=== PATIENT | male | born 1965 ===

== ENCOUNTER 2019-01-10 06:28 | Inpatient (IN) ==
[2019-01-10] MEDS ORDERED: SODIUM CHLORIDE 0.9% 1,000 ML IV STA (07:12)
[2019-01-10 07:20] LABS: Basophils # 0.1 10*3/uL (0.0-0.2); Basophils % 0.5 % (0.0-0.8); Eosinophils % 0.3 % (0.00-10.9); Hematocrit 39.1 VOL% (42.0-52.0); Hemoglobin 13.1 GM/DL (14.0-18.0); Immature Granulocytes % 0.6 %; Immature Granulocytes Absolute 0.07 #; Lymphocytes # 1.4 10*3/uL (1.4-4.0); Lymphocytes % 11.3 % (21.2-54.2); Mean Corpuscular HGB Conc 33.5 GM/DL (32-36); Mean Corpuscular Volume 85.6 FL (87-102); Mean Platelet Volume 11.1 FL (9.6-12.0); Monocytes % 7.7 % (1.7-12.7); Neutrophils % 79.6 % (38.7-73.9); Platelet Count 208 T/CUMM (130-400); Red Blood Count 4.57 MC/CUMM (3.8-5.5); Red Cell Distribution Width 13.2 % (9.3-17.3); White Blood Count 11.9 T/CUMM (4-12)
[2019-01-10 07:31] LABS: Osmolality,Calculated 276.1 MOS/KG (273-304)
[2019-01-10] MEDS ORDERED: ceFAZolin 2,000 MG in PREMIX 1 EACH IV ONE (07:50)
[2019-01-10] MEDS ORDERED: ceFAZolin 1,000 MG VIAL ONE (08:35)
[2019-01-10] MEDS ORDERED: ACETAMINOPHEN 325 MG TABLET PO PRN (08:47)
[2019-01-10] MEDS ORDERED: DOCUSATE SODIUM 100 MG CAPSULE PO PRN (08:47)
[2019-01-10] MEDS ORDERED: ONDANSETRON 4 MG/2 ML VIAL IV PRN (08:47)
[2019-01-10] MEDS ORDERED: GLUCAGON 1 MG VIAL IM PRN (09:05)
[2019-01-10] MEDS ORDERED: DEXTROSE 50% 25 GM/50 ML VIAL IV PRN (09:05)
[2019-01-10] MEDS ORDERED: BUPIVACAINE 0.25% /EPI 10 ML VIAL ONE (09:48)
[2019-01-10] MEDS ORDERED: LIDOCAINE MPF 1% /EPI 30 ML VIAL ONE (09:48)
[2019-01-10] MEDS ORDERED: PROPOFOL 200 MG/20 ML VIAL IV ONE (10:23)
[2019-01-10] MEDS ORDERED: LIDOCAINE 100 MG/5 ML SYRINGE ONE (10:23)
[2019-01-10] MEDS ORDERED: fentaNYL 100 MCG/2 ML VIAL ONE (10:24)
[2019-01-10] MEDS ORDERED: KETAMINE 500 MG/10 ML VIAL ONE (10:24)
[2019-01-10] MEDS ORDERED: ONDANSETRON 4 MG/2 ML VIAL ONE (10:24)
[2019-01-10] MEDS ORDERED: MIDAZOLAM 2 MG/2 ML VIAL ONE (10:24)
[2019-01-10] MEDS ORDERED: GLYCOPYRROLATE 0.4 MG/2 ML VIAL ONE (10:24)
[2019-01-10] MEDS: INSULIN LISPRO 100 UNIT/ML SUBCUT SCH ×3 (12:52→21:13)
[2019-01-10] MEDS: PIPERACILLIN/TAZOBACTAM 3,375 MG in SODIUM CHLORIDE 0.9% 100 ML IV SCH ×2 (12:52→21:09)
[2019-01-10] MEDS: POTASSIUM CHLORIDE RIDER 10 MEQ in PREMIX 1 EACH IV SCH ×4 (12:53→18:58)
[2019-01-10] MEDS: PANTOPRAZOLE 40 MG TABLET PO SCH (13:04)
[2019-01-10] MEDS: POTASSIUM CHLORIDE RIDER 20 MEQ in PREMIX 1 EACH IV SCH (13:37)
[2019-01-10] MEDS: HYDROmorphone 2 MG/1 ML VIAL IV PRN (15:19)
[2019-01-10] MEDS: IBUPROFEN 800 MG TABLET PO PRN (17:48)
[2019-01-10] MEDS: VANCOMYCIN INJ 2,000 MG in SODIUM CHLORIDE 0.9% 500 ML IV SCH (20:37)
[2019-01-11] MEDS: PIPERACILLIN/TAZOBACTAM 3,375 MG in SODIUM CHLORIDE 0.9% 100 ML IV SCH ×3 (03:37→23:33)
[2019-01-11 05:09] LABS: Basophils # 0.1 10*3/uL (0.0-0.2); Basophils % 0.5 % (0.0-0.8); Eosinophils # 0.1 10*3/uL (0.0-0.87); Eosinophils % 1.3 % (0.00-10.9); Hematocrit 37.2 VOL% (42.0-52.0); Hemoglobin 12.4 GM/DL (14.0-18.0); Immature Granulocytes % 0.5 %; Immature Granulocytes Absolute 0.05 #; Lymphocytes # 0.9 10*3/uL (1.4-4.0); Lymphocytes % 8.8 % (21.2-54.2); Mean Corpuscular HGB Conc 33.3 GM/DL (32-36); Mean Corpuscular Volume 85.7 FL (87-102); Mean Platelet Volume 10.3 FL (9.6-12.0); Monocytes % 7.2 % (1.7-12.7); Neutrophils % 81.7 % (38.7-73.9); Platelet Count 213 T/CUMM (130-400); Red Blood Count 4.34 MC/CUMM (3.8-5.5); White Blood Count 10.1 T/CUMM (4-12)
[2019-01-11 05:20] LABS: Calcium 7.9 MG/DL (8.5-10.1); Osmolality,Calculated 278.1 MOS/KG (273-304)
[2019-01-11] MEDS ORDERED: POTASSIUM CHLORIDE RIDER 10 MEQ in PREMIX 1 EACH IV PRN (07:43)
[2019-01-11] MEDS: PANTOPRAZOLE 40 MG TABLET PO SCH (09:09)
[2019-01-11] MEDS: ASPIRIN EC 81 MG TABLET PO SCH (09:09)
[2019-01-11] MEDS: SIMVASTATIN 20 MG TABLET PO SCH (09:09)
[2019-01-11] MEDS: POTASSIUM CHLORIDE 20 MEQ TABLET PO PRN ×5 (09:10→22:45)
[2019-01-11] MEDS: INSULIN LISPRO 100 UNIT/ML SUBCUT SCH ×4 (09:10→21:38)
[2019-01-11] MEDS: VANCOMYCIN INJ 2,000 MG in SODIUM CHLORIDE 0.9% 500 ML IV SCH ×2 (09:11→19:42)
[2019-01-11] MEDS: SODIUM HYPOCHLORITE 0.25% IRRIG 473 ML BOTTLE TOP SCH (11:30)
[2019-01-11] MEDS: CHLORHEXIDINE 4% SOLN 118 ML BOTTLE TOP SCH (11:30)
[2019-01-11] MEDS: amLODIPine 10 MG TABLET PO SCH (11:40)
[2019-01-11] MEDS: HYDROmorphone 2 MG/1 ML VIAL IV PRN ×2 (11:41→19:48)
[2019-01-12] MEDS: POTASSIUM CHLORIDE 20 MEQ TABLET PO PRN ×3 (01:55→06:02)
[2019-01-12] MEDS: HYDROmorphone 2 MG/1 ML VIAL IV PRN ×3 (02:00→21:56)
[2019-01-12 04:56] LABS: Basophils # 0.1 10*3/uL (0.0-0.2); Basophils % 0.6 % (0.0-0.8); Eosinophils # 0.2 10*3/uL (0.0-0.87); Eosinophils % 2.6 % (0.00-10.9); Hematocrit 34.1 VOL% (42.0-52.0); Hemoglobin 11.4 GM/DL (14.0-18.0); Immature Granulocytes % 0.3 %; Immature Granulocytes Absolute 0.02 #; Lymphocytes # 1.1 10*3/uL (1.4-4.0); Lymphocytes % 14.5 % (21.2-54.2); Mean Corpuscular HGB Conc 33.4 GM/DL (32-36); Mean Corpuscular Volume 84.8 FL (87-102); Mean Platelet Volume 10.9 FL (9.6-12.0); Monocytes % 8.2 % (1.7-12.7); Neutrophils % 73.8 % (38.7-73.9); Platelet Count 232 T/CUMM (130-400); Red Blood Count 4.02 MC/CUMM (3.8-5.5); White Blood Count 7.7 T/CUMM (4-12)
[2019-01-12 05:16] LABS: Calcium 7.9 MG/DL (8.5-10.1); Osmolality,Calculated 276.1 MOS/KG (273-304)
[2019-01-12] MEDS: PIPERACILLIN/TAZOBACTAM 3,375 MG in SODIUM CHLORIDE 0.9% 100 ML IV SCH ×2 (06:06→15:15)
[2019-01-12] MEDS: INSULIN LISPRO 100 UNIT/ML SUBCUT SCH ×4 (08:09→21:14)
[2019-01-12] MEDS ORDERED: SODIUM HYPOCHLORITE 0.25% IRRIG 473 ML BOTTLE TOP SCH (09:00)
[2019-01-12] MEDS ORDERED: CHLORHEXIDINE 4% SOLN 118 ML BOTTLE TOP SCH (09:00)
[2019-01-12] MEDS: amLODIPine 10 MG TABLET PO SCH (09:21)
[2019-01-12] MEDS: PANTOPRAZOLE 40 MG TABLET PO SCH (09:21)
[2019-01-12] MEDS: ASPIRIN EC 81 MG TABLET PO SCH (09:22)
[2019-01-12] MEDS: VANCOMYCIN INJ 2,000 MG in SODIUM CHLORIDE 0.9% 500 ML IV SCH ×2 (09:22→21:17)
[2019-01-12] MEDS: SIMVASTATIN 20 MG TABLET PO SCH (09:23)
[2019-01-12] MEDS: CHLORHEXIDINE 4% SOLN 118 ML BOTTLE TOP SCH (09:29)
[2019-01-12] MEDS: SODIUM HYPOCHLORITE 0.25% IRRIG 473 ML BOTTLE TOP SCH (09:29)
[2019-01-12] MEDS: POTASSIUM CHLORIDE 20 MEQ TABLET PO SCH (21:14)
[2019-01-13] MEDS: PIPERACILLIN/TAZOBACTAM 3,375 MG in SODIUM CHLORIDE 0.9% 100 ML IV SCH ×3 (01:40→17:38)
[2019-01-13 04:36] LABS: Basophils % 0.6 % (0.0-0.8); Eosinophils # 0.3 10*3/uL (0.0-0.87); Eosinophils % 4.2 % (0.00-10.9); Hematocrit 35.2 VOL% (42.0-52.0); Hemoglobin 11.4 GM/DL (14.0-18.0); Immature Granulocytes % 0.5 %; Immature Granulocytes Absolute 0.03 #; Lymphocytes # 1.2 10*3/uL (1.4-4.0); Mean Corpuscular HGB Conc 32.4 GM/DL (32-36); Mean Platelet Volume 10.5 FL (9.6-12.0); Monocytes % 9.2 % (1.7-12.7); Neutrophils % 67.5 % (38.7-73.9); Platelet Count 268 T/CUMM (130-400); Red Blood Count 4.14 MC/CUMM (3.8-5.5); White Blood Count 6.4 T/CUMM (4-12)
[2019-01-13 04:57] LABS: Calcium 8.1 MG/DL (8.5-10.1); Osmolality,Calculated 286.5 MOS/KG (273-304)
[2019-01-13] MEDS: VANCOMYCIN INJ 1,250 MG in SODIUM CHLORIDE 0.9% 250 ML IV SCH ×3 (05:02→21:24)
[2019-01-13] MEDS: INSULIN LISPRO 100 UNIT/ML SUBCUT SCH ×4 (08:04→21:22)
[2019-01-13] MEDS: IBUPROFEN 800 MG TABLET PO PRN ×2 (08:07→23:20)
[2019-01-13] MEDS: POTASSIUM CHLORIDE 20 MEQ TABLET PO SCH ×2 (09:04→21:22)
[2019-01-13] MEDS: ASPIRIN EC 81 MG TABLET PO SCH (09:04)
[2019-01-13] MEDS: SIMVASTATIN 20 MG TABLET PO SCH (09:04)
[2019-01-13] MEDS: PANTOPRAZOLE 40 MG TABLET PO SCH (09:04)
[2019-01-13] MEDS: CHLORHEXIDINE 4% SOLN 118 ML BOTTLE TOP SCH (09:05)
[2019-01-13] MEDS: amLODIPine 10 MG TABLET PO SCH (09:05)
[2019-01-13] MEDS: SODIUM HYPOCHLORITE 0.25% IRRIG 473 ML BOTTLE TOP SCH (09:05)
[2019-01-13] MEDS: ZINC OXIDE PASTE 113 GM TUBE TOP SCH ×2 (13:54→21:31)
[2019-01-13 16:14] LABS: Apearance,Urine Cloudy (Clear); Bilirubin,Urine Negative (Negative); Blood, Urine Negative (Negative); Glucose,Urine (UA) 500 mg/dL (Negative); Ketones,Urine 25 mg/dL (Negative); Nitrite,Urine Negative (Negative); Protein,Urine Negative; Urine Color Yellow (Yellow); Urine Specific Gravity 1.005 (1.001-1.035)
[2019-01-13 16:15] LABS: RBC,Urine Occasional /HPF (0-4); Squamous Epithelial Cell,Urine Rare /HPF (0-10); Urine Urobilinogen 0.2 EU/DL (0.2-1.0); WBC,Urine Occasional /HPF (0-6)
[2019-01-13] MEDS ORDERED: INSULIN GLARGINE 100 UNIT/ML SUBCUT SCH (21:00)
[2019-01-14] MEDS: PIPERACILLIN/TAZOBACTAM 3,375 MG in SODIUM CHLORIDE 0.9% 100 ML IV SCH ×3 (01:45→18:27)
[2019-01-14 05:18] LABS: Basophils # 0.1 10*3/uL (0.0-0.2); Basophils % 0.9 % (0.0-0.8); Eosinophils # 0.4 10*3/uL (0.0-0.87); Eosinophils % 6.1 % (0.00-10.9); Hematocrit 34.6 VOL% (42.0-52.0); Hemoglobin 11.1 GM/DL (14.0-18.0); Immature Granulocytes % 0.5 %; Immature Granulocytes Absolute 0.03 #; Lymphocytes # 1.4 10*3/uL (1.4-4.0); Lymphocytes % 21.8 % (21.2-54.2); Mean Corpuscular HGB Conc 32.1 GM/DL (32-36); Mean Corpuscular Volume 87.2 FL (87-102); Mean Platelet Volume 9.9 FL (9.6-12.0); Monocytes % 10.2 % (1.7-12.7); Neutrophils % 60.5 % (38.7-73.9); Platelet Count 286 T/CUMM (130-400); Red Blood Count 3.97 MC/CUMM (3.8-5.5); Red Cell Distribution Width 13.2 % (9.3-17.3); White Blood Count 6.4 T/CUMM (4-12)
[2019-01-14 05:43] LABS: Eosinophils 3 % (0-10); Lymphocytes 23 % (20-55); Nucleated Red Blood Cells 1 (0-5); Ovalocytes Slight; Platelet Estimate Adequate; Segmented Neutrophils 63 % (50-85); Total Cells Counted 100
[2019-01-14] MEDS: IBUPROFEN 800 MG TABLET PO PRN ×2 (05:45→21:16)
[2019-01-14] MEDS: VANCOMYCIN INJ 1,250 MG in SODIUM CHLORIDE 0.9% 250 ML IV SCH ×3 (06:15→22:55)
[2019-01-14] MEDS ORDERED: INSULIN GLARGINE 100 UNIT/ML SUBCUT SCH (07:44)
[2019-01-14] MEDS: INSULIN LISPRO 100 UNIT/ML SUBCUT SCH ×4 (08:54→21:20)
[2019-01-14] MEDS: POTASSIUM CHLORIDE 20 MEQ TABLET PO SCH ×2 (08:55→21:20)
[2019-01-14] MEDS: ASPIRIN EC 81 MG TABLET PO SCH (08:55)
[2019-01-14] MEDS: PANTOPRAZOLE 40 MG TABLET PO SCH (08:55)
[2019-01-14] MEDS: SIMVASTATIN 20 MG TABLET PO SCH ×2 (08:55→08:57)
[2019-01-14] MEDS: amLODIPine 10 MG TABLET PO SCH (08:55)
[2019-01-14] MEDS: ENOXAPARIN 40 MG/0.4 ML SYRINGE SUBCUT SCH (08:55)
[2019-01-14] MEDS: ZINC OXIDE PASTE 113 GM TUBE TOP SCH ×2 (09:25→21:21)
[2019-01-14] MEDS: SODIUM HYPOCHLORITE 0.25% IRRIG 473 ML BOTTLE TOP SCH (09:25)
[2019-01-14] MEDS: CHLORHEXIDINE 4% SOLN 118 ML BOTTLE TOP SCH (10:50)
[2019-01-14] MEDS ORDERED: TUBERCULIN SKIN TEST 0.1 ML SYRINGE INTRADERM ONE (12:12)
[2019-01-15] MEDS: PIPERACILLIN/TAZOBACTAM 3,375 MG in SODIUM CHLORIDE 0.9% 100 ML IV SCH (01:16)
[2019-01-15] MEDS: VANCOMYCIN INJ 1,250 MG in SODIUM CHLORIDE 0.9% 250 ML IV SCH (05:58)
[2019-01-15 06:04] LABS: Basophils # 0.1 10*3/uL (0.0-0.2); Basophils % 0.8 % (0.0-0.8); Eosinophils # 0.4 10*3/uL (0.0-0.87); Eosinophils % 6.7 % (0.00-10.9); Hematocrit 36.9 VOL% (42.0-52.0); Hemoglobin 12.1 GM/DL (14.0-18.0); Immature Granulocytes % 0.7 %; Immature Granulocytes Absolute 0.04 #; Lymphocytes # 1.6 10*3/uL (1.4-4.0); Lymphocytes % 25.9 % (21.2-54.2); Mean Corpuscular HGB Conc 32.8 GM/DL (32-36); Mean Corpuscular Volume 86.2 FL (87-102); Mean Platelet Volume 9.6 FL (9.6-12.0); Monocytes % 9.5 % (1.7-12.7); Neutrophils % 56.4 % (38.7-73.9); Platelet Count 337 T/CUMM (130-400); Red Blood Count 4.28 MC/CUMM (3.8-5.5); Red Cell Distribution Width 13.2 % (9.3-17.3)
[2019-01-15 06:26] LABS: Calcium 8.7 MG/DL (8.5-10.1); Osmolality,Calculated 279.7 MOS/KG (273-304)
[2019-01-15 06:34] LABS: Risk Ratio 4.62
[2019-01-15] MEDS ORDERED: INSULIN GLARGINE 100 UNIT/ML SUBCUT SCH ×2 (09:21→12:48)
[2019-01-15] MEDS: POTASSIUM CHLORIDE 20 MEQ TABLET PO SCH ×2 (09:21→21:10)
[2019-01-15] MEDS: SIMVASTATIN 20 MG TABLET PO SCH (09:21)
[2019-01-15] MEDS: ENOXAPARIN 40 MG/0.4 ML SYRINGE SUBCUT SCH (09:21)
[2019-01-15] MEDS: ASPIRIN EC 81 MG TABLET PO SCH (09:21)
[2019-01-15] MEDS: INSULIN LISPRO 100 UNIT/ML SUBCUT SCH ×4 (09:21→21:13)
[2019-01-15] MEDS: amLODIPine 10 MG TABLET PO SCH (09:21)
[2019-01-15] MEDS: SODIUM HYPOCHLORITE 0.25% IRRIG 473 ML BOTTLE TOP SCH (09:25)
[2019-01-15] MEDS: ZINC OXIDE PASTE 113 GM TUBE TOP SCH ×2 (09:26→21:09)
[2019-01-15] MEDS: CHLORHEXIDINE 4% SOLN 118 ML BOTTLE TOP SCH (09:26)
[2019-01-15] MEDS: PANTOPRAZOLE 40 MG TABLET PO SCH (09:30)
[2019-01-15] MEDS: CLINDAMYCIN 300 MG CAPSULE PO SCH ×2 (12:19→18:49)
[2019-01-15] MEDS: IBUPROFEN 800 MG TABLET PO PRN (21:09)
[2019-01-16] MEDS: CLINDAMYCIN 300 MG CAPSULE PO SCH ×3 (01:07→12:40)
[2019-01-16] MEDS: PANTOPRAZOLE 40 MG TABLET PO SCH (09:37)
[2019-01-16] MEDS: amLODIPine 10 MG TABLET PO SCH (09:37)
[2019-01-16] MEDS: SIMVASTATIN 20 MG TABLET PO SCH (09:37)
[2019-01-16] MEDS: POTASSIUM CHLORIDE 20 MEQ TABLET PO SCH (09:37)
[2019-01-16] MEDS: ASPIRIN EC 81 MG TABLET PO SCH (09:38)
[2019-01-16] MEDS: INSULIN LISPRO 100 UNIT/ML SUBCUT SCH ×2 (09:39→12:00)
[2019-01-16] MEDS: ENOXAPARIN 40 MG/0.4 ML SYRINGE SUBCUT SCH (09:40)
[2019-01-16] MEDS: ZINC OXIDE PASTE 113 GM TUBE TOP SCH (09:42)
[2019-01-16] MEDS: SODIUM HYPOCHLORITE 0.25% IRRIG 473 ML BOTTLE TOP SCH (09:42)
[2019-01-16] MEDS: CHLORHEXIDINE 4% SOLN 118 ML BOTTLE TOP SCH (09:42)
[2019-01-16 11:26] VITALS: BP 152/76
== END 2019-01-16 14:45 | disposition home health service (06) | DRG 987 ==
LOC: EDBD → EDUNIT# → N.ED 06:28 → N.EDINP 08:42 → SUATTDRO 08:42 → N.3E 09:20
PROVIDERS: ADMIT Internal Medicine; ATTEND Internal Medicine

== ENCOUNTER 2020-07-14 07:31 | Inpatient (IN) ==
[2020-07-14 08:12] LABS: Basophils # 0.1 10*3/uL (0.0-0.2); Basophils % 0.9 % (0.0-0.8); Eosinophils # 0.3 10*3/uL (0.0-0.87); Hematocrit 34.6 VOL% (42.0-52.0); Hemoglobin 10.4 GM/DL (14.0-18.0); Immature Granulocytes % 0.4 %; Immature Granulocytes Absolute 0.04 #; Lymphocytes # 2.3 10*3/uL (1.4-4.0); Lymphocytes % 25.2 % (21.2-54.2); Mean Corpuscular HGB Conc 30.1 GM/DL (32-36); Mean Corpuscular Volume 81.4 FL (87-102); Mean Platelet Volume 9.2 FL (9.6-12.0); Monocytes % 6.8 % (1.7-12.7); Neutrophils % 63.7 % (38.7-73.9); Platelet Count 318 T/CUMM (130-400); Red Blood Count 4.25 MC/CUMM (3.8-5.5); Red Cell Distribution Width 17.2 % (9.3-17.3); White Blood Count 9.1 T/CUMM (4-12)
[2020-07-14] MEDS ORDERED: ceFAZolin 1,000 MG in SYRINGE 1 EACH IV ONE (08:38)
[2020-07-14 08:47] LABS: Calcium 8.5 MG/DL (8.5-10.1); Osmolality,Calculated 284.7 MOS/KG (273-304); Potassium 3.4 MMOL/L (3.5-5.1)
[2020-07-14] MEDS ORDERED: MIDAZOLAM 2 MG/2 ML VIAL ONE (09:37)
[2020-07-14] MEDS ORDERED: fentaNYL 100 MCG/2 ML VIAL ONE (09:37)
[2020-07-14] MEDS: LACTATED RINGERS 1,000 ML IV SCH (09:45)
[2020-07-14] MEDS ORDERED: METHYLENE BLUE 10 ML VIAL IV ONE (10:06)
[2020-07-14] MEDS ORDERED: LIDOCAINE 2% 5 ML VIAL ONE (10:13)
[2020-07-14] MEDS ORDERED: SEVOFLURANE 1 UNIT/15 MINUTE INH ONE ×6 (10:13→11:18)
[2020-07-14] MEDS ORDERED: ONDANSETRON 4 MG/2 ML VIAL ONE ×2 (10:13→11:50)
[2020-07-14] MEDS ORDERED: propofoL 200 MG/20 ML VIAL IV ONE (10:13)
[2020-07-14] MEDS ORDERED: PHENYLEPHRINE 1 MG/10 ML SYRINGE IV ONE ×2 (10:13→10:49)
[2020-07-14] MEDS ORDERED: ROCURONIUM 50 MG/5 ML VIAL IV ONE (10:13)
[2020-07-14] MEDS ORDERED: BACITRACIN 50,000 UNIT VIAL ONE (10:36)
[2020-07-14] MEDS ORDERED: SUGAMMADEX 200 MG/2 ML VIAL IV ONE (10:39)
[2020-07-14] MEDS ORDERED: HYDROmorphone 2 MG/1 ML VIAL ONE (11:50)
[2020-07-14] MEDS: HYDROmorphone 2 MG/1 ML VIAL IV PRN ×2 (11:50→12:10)
[2020-07-14] MEDS ORDERED: ONDANSETRON 4 MG/2 ML VIAL IV PRN (12:03)
[2020-07-14] MEDS: ENOXAPARIN 30 MG/0.3 ML SYRINGE SUBCUT SCH (17:27)
[2020-07-15] MEDS ORDERED: GABAPENTIN 100 MG CAPSULE PO PRN (12:19)
[2020-07-15] MEDS ORDERED: GLUCAGON 1 MG VIAL IM PRN (12:19)
[2020-07-15] MEDS ORDERED: DEXTROSE 50% 25 GM/50 ML VIAL IV PRN (12:19)
[2020-07-15] MEDS: ENOXAPARIN 30 MG/0.3 ML SYRINGE SUBCUT SCH (15:49)
[2020-07-15] MEDS ORDERED: POTASSIUM CHLORIDE 20 MEQ TABLET PO ONE (15:58)
[2020-07-15] MEDS: INSULIN LISPRO 100 UNIT/ML SUBCUT SCH ×2 (16:54→21:43)
[2020-07-15] MEDS: FERROUS GLUCONATE 324 MG TABLET PO SCH (21:34)
[2020-07-16 06:02] LABS: Basophils # 0.1 10*3/uL (0.0-0.2); Basophils % 0.8 % (0.0-0.8); Eosinophils # 0.4 10*3/uL (0.0-0.87); Eosinophils % 5.2 % (0.00-10.9); Hematocrit 34.5 VOL% (42.0-52.0); Hemoglobin 10.6 GM/DL (14.0-18.0); Immature Granulocytes % 0.3 %; Immature Granulocytes Absolute 0.02 #; Lymphocytes % 26.9 % (21.2-54.2); Mean Corpuscular HGB Conc 30.7 GM/DL (32-36); Mean Corpuscular Volume 80.6 FL (87-102); Mean Platelet Volume 9.3 FL (9.6-12.0); Neutrophils % 59.8 % (38.7-73.9); Platelet Count 269 T/CUMM (130-400); Red Blood Count 4.28 MC/CUMM (3.8-5.5); Red Cell Distribution Width 17.1 % (9.3-17.3); White Blood Count 7.2 T/CUMM (4-12)
[2020-07-16 06:12] LABS: Calcium 8.5 MG/DL (8.5-10.1); Potassium 3.7 MMOL/L (3.5-5.1)
[2020-07-16] MEDS: METOPROLOL SUCCINATE XL 25 MG TABLET PO SCH (08:40)
[2020-07-16] MEDS: lisinopriL 5 MG TABLET PO SCH (08:40)
[2020-07-16] MEDS: amLODIPine 5 MG TABLET PO SCH (08:40)
[2020-07-16] MEDS: INSULIN LISPRO 100 UNIT/ML SUBCUT SCH ×4 (08:40→20:25)
[2020-07-16] MEDS: BACITRACIN OINT 0.9 GM PACK TOP SCH (17:31)
[2020-07-16] MEDS: ENOXAPARIN 40 MG/0.4 ML SYRINGE SUBCUT SCH (20:24)
[2020-07-16] MEDS: FERROUS GLUCONATE 324 MG TABLET PO SCH (20:25)
[2020-07-16] MEDS: INSULIN GLARGINE 100 UNIT/ML SUBCUT SCH (20:25)
[2020-07-16] MEDS: LACTATED RINGERS 1,000 ML IV SCH (21:36)
[2020-07-17 05:25] LABS: Basophils # 0.1 10*3/uL (0.0-0.2); Eosinophils # 0.3 10*3/uL (0.0-0.87); Eosinophils % 4.5 % (0.00-10.9); Hematocrit 36.2 VOL% (42.0-52.0); Immature Granulocytes % 0.4 %; Immature Granulocytes Absolute 0.03 #; Lymphocytes % 27.6 % (21.2-54.2); Mean Corpuscular HGB Conc 30.4 GM/DL (32-36); Mean Corpuscular Volume 81.3 FL (87-102); Mean Platelet Volume 9.8 FL (9.6-12.0); Monocytes % 6.9 % (1.7-12.7); Neutrophils % 59.6 % (38.7-73.9); Platelet Count 310 T/CUMM (130-400); Red Blood Count 4.45 MC/CUMM (3.8-5.5); Red Cell Distribution Width 17.2 % (9.3-17.3); White Blood Count 7.1 T/CUMM (4-12)
[2020-07-17 05:41] LABS: Calcium 8.4 MG/DL (8.5-10.1); Osmolality,Calculated 280.7 MOS/KG (273-304); Potassium 3.6 MMOL/L (3.5-5.1)
[2020-07-17] MEDS: amLODIPine 5 MG TABLET PO SCH (09:15)
[2020-07-17] MEDS: METOPROLOL SUCCINATE XL 25 MG TABLET PO SCH (09:16)
[2020-07-17] MEDS: INSULIN LISPRO 100 UNIT/ML SUBCUT SCH ×4 (09:16→20:20)
[2020-07-17] MEDS: lisinopriL 5 MG TABLET PO SCH (09:16)
[2020-07-17] MEDS: ENOXAPARIN 40 MG/0.4 ML SYRINGE SUBCUT SCH (20:20)
[2020-07-17] MEDS: INSULIN GLARGINE 100 UNIT/ML SUBCUT SCH (20:20)
[2020-07-17] MEDS: FERROUS GLUCONATE 324 MG TABLET PO SCH (20:20)
[2020-07-18 06:47] LABS: Basophils # 0.1 10*3/uL (0.0-0.2); Basophils % 1.2 % (0.0-0.8); Eosinophils # 0.4 10*3/uL (0.0-0.87); Eosinophils % 5.1 % (0.00-10.9); Hematocrit 37.4 VOL% (42.0-52.0); Hemoglobin 11.3 GM/DL (14.0-18.0); Immature Granulocytes % 0.5 %; Immature Granulocytes Absolute 0.04 #; Lymphocytes # 2.1 10*3/uL (1.4-4.0); Lymphocytes % 26.6 % (21.2-54.2); Mean Corpuscular HGB Conc 30.2 GM/DL (32-36); Mean Platelet Volume 9.9 FL (9.6-12.0); Monocytes % 7.1 % (1.7-12.7); Neutrophils % 59.5 % (38.7-73.9); Platelet Count 295 T/CUMM (130-400); Red Blood Count 4.56 MC/CUMM (3.8-5.5); Red Cell Distribution Width 17.4 % (9.3-17.3); White Blood Count 7.7 T/CUMM (4-12)
[2020-07-18 07:25] LABS: Albumin 2.6 G/DL (3.4-5.0); Bilirubin,Total 1.1 MG/DL (0.2-1.0); Calcium 8.6 MG/DL (8.5-10.1); Osmolality,Calculated 280.1 MOS/KG (273-304); Potassium 3.5 MMOL/L (3.5-5.1)
[2020-07-18] MEDS: lisinopriL 5 MG TABLET PO SCH (08:28)
[2020-07-18] MEDS: amLODIPine 5 MG TABLET PO SCH (08:28)
[2020-07-18] MEDS: INSULIN LISPRO 100 UNIT/ML SUBCUT SCH ×4 (08:28→21:17)
[2020-07-18] MEDS: METOPROLOL SUCCINATE XL 25 MG TABLET PO SCH (08:28)
[2020-07-18] MEDS: SULFAMETHOX/TRIMETHOPRIM 800-160 MG TABLET PO SCH ×2 (12:05→21:15)
[2020-07-18] MEDS ORDERED: INSULIN GLARGINE 100 UNIT/ML SUBCUT SCH (21:00)
[2020-07-18] MEDS: FERROUS GLUCONATE 324 MG TABLET PO SCH (21:15)
[2020-07-18] MEDS: ENOXAPARIN 40 MG/0.4 ML SYRINGE SUBCUT SCH (21:16)
[2020-07-19 05:01] LABS: Basophils # 0.1 10*3/uL (0.0-0.2); Basophils % 1.2 % (0.0-0.8); Eosinophils # 0.4 10*3/uL (0.0-0.87); Eosinophils % 5.5 % (0.00-10.9); Hematocrit 36.5 VOL% (42.0-52.0); Hemoglobin 10.9 GM/DL (14.0-18.0); Immature Granulocytes % 0.4 %; Immature Granulocytes Absolute 0.03 #; Lymphocytes # 2.3 10*3/uL (1.4-4.0); Lymphocytes % 29.1 % (21.2-54.2); Mean Corpuscular HGB Conc 29.9 GM/DL (32-36); Mean Corpuscular Volume 83.1 FL (87-102); Mean Platelet Volume 10.3 FL (9.6-12.0); Monocytes % 6.7 % (1.7-12.7); Neutrophils % 57.1 % (38.7-73.9); Platelet Count 299 T/CUMM (130-400); Red Blood Count 4.39 MC/CUMM (3.8-5.5); Red Cell Distribution Width 17.4 % (9.3-17.3); White Blood Count 8.1 T/CUMM (4-12)
[2020-07-19 05:24] LABS: Albumin 2.6 G/DL (3.4-5.0); Bilirubin,Total 0.5 MG/DL (0.2-1.0); Calcium 8.4 MG/DL (8.5-10.1); Osmolality,Calculated 279.2 MOS/KG (273-304); Potassium 3.7 MMOL/L (3.5-5.1); Total Protein 7.7 G/DL (6.4-8.2)
[2020-07-19] MEDS: INSULIN LISPRO 100 UNIT/ML SUBCUT SCH ×4 (07:43→22:19)
[2020-07-19] MEDS: BACITRACIN OINT 0.9 GM PACK TOP SCH (09:26)
[2020-07-19] MEDS: amLODIPine 5 MG TABLET PO SCH (09:26)
[2020-07-19] MEDS: METOPROLOL SUCCINATE XL 25 MG TABLET PO SCH (09:27)
[2020-07-19] MEDS: lisinopriL 5 MG TABLET PO SCH (09:27)
[2020-07-19] MEDS: metFORMIN 500 MG TABLET PO SCH ×2 (09:27→17:19)
[2020-07-19] MEDS: SULFAMETHOX/TRIMETHOPRIM 800-160 MG TABLET PO SCH ×2 (09:27→22:14)
[2020-07-19] MEDS: FERROUS GLUCONATE 324 MG TABLET PO SCH (22:14)
[2020-07-19] MEDS: ENOXAPARIN 40 MG/0.4 ML SYRINGE SUBCUT SCH (22:14)
[2020-07-19] MEDS: INSULIN GLARGINE 100 UNIT/ML SUBCUT SCH (22:19)
[2020-07-20] MEDS: METOPROLOL SUCCINATE XL 25 MG TABLET PO SCH (08:20)
[2020-07-20] MEDS: SULFAMETHOX/TRIMETHOPRIM 800-160 MG TABLET PO SCH ×2 (08:20→22:02)
[2020-07-20] MEDS: amLODIPine 5 MG TABLET PO SCH (08:21)
[2020-07-20] MEDS: lisinopriL 5 MG TABLET PO SCH (08:21)
[2020-07-20] MEDS: INSULIN LISPRO 100 UNIT/ML SUBCUT SCH ×4 (08:21→22:02)
[2020-07-20] MEDS: metFORMIN 500 MG TABLET PO SCH ×2 (08:21→16:52)
[2020-07-20] MEDS ORDERED: Dulaglutide [Trulicity] 0.75 mg/0.5 mL Pen Injector SUBCUT SCH (12:30)
[2020-07-20] MEDS: FERROUS GLUCONATE 324 MG TABLET PO SCH (22:02)
[2020-07-20] MEDS: INSULIN GLARGINE 100 UNIT/ML SUBCUT SCH (22:03)
[2020-07-20] MEDS: ENOXAPARIN 40 MG/0.4 ML SYRINGE SUBCUT SCH (22:04)
[2020-07-21] MEDS: INSULIN LISPRO 100 UNIT/ML SUBCUT SCH ×3 (08:22→17:22)
[2020-07-21] MEDS: METOPROLOL SUCCINATE XL 25 MG TABLET PO SCH (08:23)
[2020-07-21] MEDS: BACITRACIN OINT 0.9 GM PACK TOP SCH (08:23)
[2020-07-21] MEDS: lisinopriL 5 MG TABLET PO SCH (08:23)
[2020-07-21] MEDS: metFORMIN 500 MG TABLET PO SCH ×2 (08:23→17:22)
[2020-07-21] MEDS: SULFAMETHOX/TRIMETHOPRIM 800-160 MG TABLET PO SCH ×2 (08:23→20:56)
[2020-07-21] MEDS: amLODIPine 5 MG TABLET PO SCH (08:23)
[2020-07-21] MEDS: FERROUS GLUCONATE 324 MG TABLET PO SCH (20:56)
[2020-07-21] MEDS: ENOXAPARIN 40 MG/0.4 ML SYRINGE SUBCUT SCH (20:58)
[2020-07-21] MEDS: INSULIN GLARGINE 100 UNIT/ML SUBCUT SCH (20:58)
[2020-07-22] MEDS: INSULIN LISPRO 100 UNIT/ML SUBCUT SCH ×5 (00:11→21:00)
[2020-07-22] MEDS: metFORMIN 500 MG TABLET PO SCH ×2 (08:01→16:20)
[2020-07-22] MEDS: SULFAMETHOX/TRIMETHOPRIM 800-160 MG TABLET PO SCH ×2 (08:02→20:52)
[2020-07-22] MEDS: METOPROLOL SUCCINATE XL 25 MG TABLET PO SCH (08:02)
[2020-07-22] MEDS: amLODIPine 5 MG TABLET PO SCH (08:02)
[2020-07-22] MEDS: lisinopriL 5 MG TABLET PO SCH (08:02)
[2020-07-22] MEDS: FERROUS GLUCONATE 324 MG TABLET PO SCH (20:52)
[2020-07-22] MEDS: ENOXAPARIN 40 MG/0.4 ML SYRINGE SUBCUT SCH (20:53)
[2020-07-22] MEDS: INSULIN GLARGINE 100 UNIT/ML SUBCUT SCH (20:54)
[2020-07-23] MEDS: INSULIN LISPRO 100 UNIT/ML SUBCUT SCH ×4 (09:10→21:02)
[2020-07-23] MEDS: metFORMIN 500 MG TABLET PO SCH ×2 (09:11→16:04)
[2020-07-23] MEDS: BACITRACIN OINT 0.9 GM PACK TOP SCH (09:11)
[2020-07-23] MEDS: SULFAMETHOX/TRIMETHOPRIM 800-160 MG TABLET PO SCH ×2 (09:11→21:01)
[2020-07-23] MEDS: METOPROLOL SUCCINATE XL 25 MG TABLET PO SCH (09:11)
[2020-07-23] MEDS: lisinopriL 5 MG TABLET PO SCH (09:11)
[2020-07-23] MEDS: amLODIPine 5 MG TABLET PO SCH (09:11)
[2020-07-23] MEDS: FERROUS GLUCONATE 324 MG TABLET PO SCH (21:01)
[2020-07-23] MEDS: ENOXAPARIN 40 MG/0.4 ML SYRINGE SUBCUT SCH (21:02)
[2020-07-23] MEDS: INSULIN GLARGINE 100 UNIT/ML SUBCUT SCH (21:06)
[2020-07-24 05:27] LABS: Calcium 8.4 MG/DL (8.5-10.1); Potassium 3.9 MMOL/L (3.5-5.1)
[2020-07-24] MEDS: metFORMIN 500 MG TABLET PO SCH ×2 (08:00→16:05)
[2020-07-24] MEDS: INSULIN LISPRO 100 UNIT/ML SUBCUT SCH ×4 (08:00→21:29)
[2020-07-24] MEDS: amLODIPine 5 MG TABLET PO SCH (08:01)
[2020-07-24] MEDS: METOPROLOL SUCCINATE XL 25 MG TABLET PO SCH (08:01)
[2020-07-24] MEDS: SULFAMETHOX/TRIMETHOPRIM 800-160 MG TABLET PO SCH ×2 (08:01→21:29)
[2020-07-24] MEDS: lisinopriL 5 MG TABLET PO SCH (08:01)
[2020-07-24] MEDS: INSULIN GLARGINE 100 UNIT/ML SUBCUT SCH (21:23)
[2020-07-24] MEDS: ENOXAPARIN 40 MG/0.4 ML SYRINGE SUBCUT SCH (21:29)
[2020-07-24] MEDS: FERROUS GLUCONATE 324 MG TABLET PO SCH (21:29)
[2020-07-25] MEDS: METOPROLOL SUCCINATE XL 25 MG TABLET PO SCH (09:05)
[2020-07-25] MEDS: INSULIN LISPRO 100 UNIT/ML SUBCUT SCH ×4 (09:05→21:19)
[2020-07-25] MEDS: SULFAMETHOX/TRIMETHOPRIM 800-160 MG TABLET PO SCH ×2 (09:05→21:19)
[2020-07-25] MEDS: metFORMIN 500 MG TABLET PO SCH ×2 (09:05→16:10)
[2020-07-25] MEDS: amLODIPine 5 MG TABLET PO SCH (09:06)
[2020-07-25] MEDS: lisinopriL 5 MG TABLET PO SCH (09:06)
[2020-07-25] MEDS: INSULIN GLARGINE 100 UNIT/ML SUBCUT SCH (21:18)
[2020-07-25] MEDS: FERROUS GLUCONATE 324 MG TABLET PO SCH (21:19)
[2020-07-25] MEDS: ENOXAPARIN 40 MG/0.4 ML SYRINGE SUBCUT SCH (21:19)
[2020-07-26] MEDS: INSULIN LISPRO 100 UNIT/ML SUBCUT SCH ×2 (09:25→11:46)
[2020-07-26] MEDS: metFORMIN 500 MG TABLET PO SCH (09:25)
[2020-07-26] MEDS: METOPROLOL SUCCINATE XL 25 MG TABLET PO SCH (09:26)
[2020-07-26] MEDS: lisinopriL 5 MG TABLET PO SCH (09:26)
[2020-07-26] MEDS: amLODIPine 5 MG TABLET PO SCH (09:26)
[2020-07-26] MEDS: BACITRACIN OINT 0.9 GM PACK TOP SCH (10:38)
[2020-07-26 11:59] VITALS: BP 123/70
== END 2020-07-26 14:15 | disposition home or self-care (01) | DRG 982 ==
LOC: N.OR 07:31 → N.SDSINP 07:34 → N.5E 15:31
PROVIDERS: ADMIT Specialist; ATTEND Specialist